=== PATIENT | male | born 1965 | race Caucasian/White ===

== ENCOUNTER 2017-04-11 15:45 | Emergency (ER) | payer OTHER ==
[~2017-04-11] VITALS: Ht 185.4 cm; Wt 81.8 kg
[~2017-04-11 15:45] MED LIST: ACETAMINOP160 MG/51 GT; BACTRIM,SEPT1 TABLET GT; BACTRIM,SEPT1 TABLET PO; BIOTENE ORALBAL42 GM MM; BISACODYL SUPP10 MG RC; CALCIUM CA1250 MG/5 GT; CALCIUM CARB 51 EACH GT; CENTAMIN240 ML GT; CENTAMIN240 ML PO; CEROVITE237 ML GT; CIPRO500 MG PO; CLOTRIMAZOLE-BE15 GM TP; DEBROX15 ML BOTH EARS; DEPAKENE250 MG PO; DIASTAT ACUDIA1 EACH RC; DIASTAT ACUDIAL10 MG PR; DOXYCYCLINE HY100 MG GT; DULCOLAX10 MG PR; DUODERM CGF1 EACH TP; DUONEB3 ML IH; ESCITALOPRA5 MG/5 ML PO; FLEET ENEMA-AD118 ML PR; FORTICAL,200 INTUNI NS; FORTICAL3.7 ML ALT NARES; HIBICLENS118 ML TP; IMODIUM A-1 MG/7.5 M GT; LAMISIL15 GM TP; LAXATIVE SUPPOS10 MG PR; LEXAPRO5 MG/5 ML GT; LEXAPRO5 MG/5 ML PO; LISINOPRIL5 MG GT; LISINOPRIL5 MG PO; LOPERAMIDE1 MG/5 ML GT; LOPERAMIDE1 MG/5 ML PO; METHENAMINE HIPP1 G1 GT; METHENAMINE1 GM; MULTI-VITAMIN1 EAC1 PO; MUPIROCIN1 GM TP; Mycostatin,Nystop Po TP; NAPROSYN125 MG/5 M G-TUBE; NAPROXEN375 M1 GT; NAPROXEN375 M2 GT; NYAMYC60 GM TP; PEDIATRIC ELEC237 ML PO; PHENADOZ25 MG PR; PHENADOZ25 MG RC; PRINIVIL5 MG PO; PROMETHEGAN25 MG PR; Q-TUSSIN DM SY240 ML GT; Q-TUSSIN100 MG/5 M GT; SENNA PLUS TAB1 EACH GT; SILACE50 MG/5 ML GT; SILVER NITRATE1 EACH TP; SODIUM CHLORIDE1 G1 GT; SODIUM CHLORIDE1 G1 PO; TEGRETOL PO; TEGRETOL-XR,CA400 MG GT; TEGRETOL100 MG/5 M GT; TEGRETOL100 MG/5 M PO; TRIPLE ANTIB28.35 GM TP; TYLENOL EX167 MG/5 M GT; TYLENOL650 MG/20. PO; VALPROIC A250 MG/5 M G-TUBE; VALPROIC A250 MG/5 M GT; [UNRECOGNIZED DRUG - OTHER] TP
[2017-04-11 17:48] LABS: HEMATOCRIT 39.4 % (38.0-50.0); MCH 32.3 PG (29.0-34.0); MCHC 35.5 G/DL (30.0-36.0); MCV 90.8 FL (86-99); PLATELET COUNT 130 K/uL (156-360); RBC DIS.WIDTH-CV 12.5 % (11.8-14.6); RBC DIS.WIDTH-SD 41.6 % (39-53); RED BLOOD COUNT 4.34 M/uL (4.00-5.50); WHITE BLOOD COUNT 3.3 K/uL (4.1-10.2)
[2017-04-11 17:56] LABS: ALBUMIN 3.8 g/dL (3.2-4.8)
[2017-04-11 17:57] LABS: CHLORIDE 92 mEq/L (99-109); POTASSIUM 4.6 mEq/L (3.7-5.4); SODIUM 131 mEq/L (136-147)
[2017-04-11 17:59] LABS: GLUCOSE 83 mg/dL (70-99); TOTAL PROTEIN 7.9 g/dL (6.4-8.3)
[2017-04-11 18:01] LABS: TOTAL BILIRUBIN 0.2 mg/dL (0.0-1.0)
[2017-04-11 18:02] LABS: ALKALINE PHOSPHATASE 96 IU/L (3-129)
[2017-04-11 18:03] LABS: CREATININE 0.5 mg/dL (0.6-1.3); GFR ESTIMATE (CALCULATED) > 59 mL/min/ (58.99-99999)
[2017-04-11 18:04] LABS: AST (GOT) 12 IU/L (2-34); UREA NITROGEN (BUN) 11 mg/dL (9-23)
[2017-04-11 18:05] LABS: ALT (GPT) 10 IU/L (3-49)
[2017-04-11] MEDS ORDERED: FLEET ENEMA EX230 ML PR (18:20)
[2017-04-11] MEDS ORDERED: CENTRUM LIQUID GT (18:28)
[2017-04-11] MEDS ORDERED: DOCUSATE GT (18:35)
[2017-04-11] MEDS ORDERED: TEGRETOL100 MG/5 M GT (18:38)
[2017-04-11] MEDS ORDERED: TOBRAMYCIN-DEXAM5 ML RIGHT EYE (18:44)
[2017-04-11] MEDS ORDERED: CLEOCIN300 MG GT (18:46)
[2017-04-12 01:27] LABS: CREATINE KINASE 33 IU/L (1-294); LIPASE 27 U/L (1.0-51.0)
[2017-04-12 01:52] LABS: VALPROIC ACID (DEPAKOTE) 64.9 MCG/ML (50-100)
[2017-04-12 03:33] VITALS: BP 114/78
== END 2017-04-12 03:46 | disposition short-term general hospital (02) ==
LOC: EME 15:45 → EDOF 19:40 → EME 19:40 → ENRESERV 19:41 → CANRESERV 20:01 → ENRESERV 20:01
PROVIDERS: Hospitalist; Nurse Practitioner Family
DX: H05.20 Unspecified exophthalmos (principal); H05.011 Cellulitis of right orbit; G40.909 Epilepsy, unspecified, not intractable, without status epilepticus; J32.9 Chronic sinusitis, unspecified; Z87.820 Personal history of traumatic brain injury; F79 Unspecified intellectual disabilities; I10 Essential (primary) hypertension; R47.01 Aphasia; Z99.3 Dependence on wheelchair; Z93.1 Gastrostomy status; Z88.1 Allergy status to other antibiotic agents
CPT/HCPCS: 70487; 80053; 80156; 80164; 82550; 82948; 83690; 85027; 87040; 99281; 99285; J1956; J2060; J3370

== ENCOUNTER 2017-07-23 13:35 | Inpatient (IN) | payer OTHER ==
[~2017-07-23] VITALS: Ht 172.7 cm; Wt 86.1 kg
[~2017-07-23 13:35] MED LIST changes: +CENTRUM LIQUID GT; +CLEOCIN300 MG GT; +FLEET ENEMA EX230 ML PR; +TOBRAMYCIN-DEXAM5 ML RIGHT EYE
[2017-07-23 15:25] LABS: HEMATOCRIT 39.7 % (38.0-50.0); HEMOGLOBIN 14.2 G/DL (12.5-16.6); MCHC 35.8 G/DL (30.0-36.0); MCV 89.4 FL (86-99); RBC DIS.WIDTH-CV 12.6 % (11.8-14.6); RBC DIS.WIDTH-SD 40.9 % (39-53); RED BLOOD COUNT 4.44 M/uL (4.00-5.50); WHITE BLOOD COUNT 8.2 K/uL (4.1-10.2)
[2017-07-23 15:26] LABS: PLATELET COUNT 102 K/uL (156-360)
[2017-07-23 15:34] LABS: CHLORIDE 87 mEq/L (99-109); POTASSIUM 4.4 mEq/L (3.7-5.4); SODIUM 125 mEq/L (136-147)
[2017-07-23 15:36] LABS: GLUCOSE 178 mg/dL (70-99)
[2017-07-23 15:40] LABS: CREATININE 0.6 mg/dL (0.6-1.3); GFR ESTIMATE (CALCULATED) > 59 mL/min/ (58.99-99999); UREA NITROGEN (BUN) 12 mg/dL (9-23)
[2017-07-23 16:57] LABS: APPEARANCE CLOUDY ((CLEAR)); BILIRUBIN NEGATIVE; BLOOD NEGATIVE; COLOR AMBER ((YELLOW)); GLUCOSE (STRIP) NEGATIVE; KETONES NEGATIVE; LEUKOCYTES NEGATIVE; NITRITE NEGATIVE; PROTEIN (STRIP) 30; SPECIFIC GRAVITY 1.019 (1.000-1.030); UROBILINOGEN 0.2 MG/DL (0.2-1.0)
[2017-07-23 17:19] LABS: EPITHELIAL CELLS RARE /HPF; MUCUS NONE SEEN /LPF; RED BLOOD CELLS NONE SEEN /HPF (0-5); UCUL ADDED? NO; WHITE BLOOD CELLS NONE SEEN /HPF (0-5)
[2017-07-23 17:21] LABS: BACTERIA 1+ /HPF; CALCIUM OXALATE CRYSTALS FEW /HPF; TRIPLE PHOSPHATE CRYSTALS 2+ /HPF
[2017-07-23] MEDS ORDERED: DESITIN57 GM TP (18:10)
[2017-07-23] MEDS ORDERED: DEBROX15 ML BOTH EARS (18:12)
[2017-07-23] MEDS ORDERED: PROSHIELD PLUS113 GM TP ×2 (18:13→18:14)
[2017-07-23] MEDS ORDERED: SILTUSSIN100 MG/51 GT (18:19)
[2017-07-23 22:01] VITALS: BP 102/59
[2017-07-24 00:01] VITALS: BP 142/68
[2017-07-24 06:52] LABS: BASOPHIL (%) 0.2 % (0-1); EOSINOPHIL (%) 0 % (0-5); HEMOGLOBIN 12.4 G/DL (12.5-16.6); IMMATURE GRANULOCYTE (%) 0.2 % (0.0-0.7); LYMPHOCYTE (%) 14.8 % (15-42); LYMPHOCYTE COUNT 0.7 K/uL (1.0-2.8); MCH 31.4 PG (29.0-34.0); MCHC 34.4 G/DL (30.0-36.0); MCV 91.1 FL (86-99); MONOCYTE (%) 9.9 % (3-12); MONOCYTE COUNT 0.5 K/uL (0-0.8); NEUTROPHIL (%) 74.9 % (45-76); NEUTROPHIL COUNT 3.6 K/uL (1.8-6.4); PLATELET COUNT 102 K/uL (156-360); RBC DIS.WIDTH-CV 12.6 % (11.8-14.6); RBC DIS.WIDTH-SD 41.9 % (39-53); RED BLOOD COUNT 3.95 M/uL (4.00-5.50); WHITE BLOOD COUNT 4.9 K/uL (4.1-10.2)
[2017-07-24 07:00] LABS: CHLORIDE 95 MEQ/L (99-109); CREATININE 0.3 MG/DL (0.6-1.3); GFR ESTIMATE (CALCULATED) > 59 mL/min/ (58.99-99999); GLUCOSE 146 mg/dL (70-99); POTASSIUM 3.8 MEQ/L (3.7-5.4); SODIUM 130 MEQ/L (136-147); UREA NITROGEN (BUN) 7 mg/dL (9-23)
[2017-07-24 07:54] VITALS: BP 96/55
[2017-07-24 11:49] VITALS: BP 114/70
[2017-07-24 15:00] VITALS: BP 125/65
[2017-07-25] VITALS (10 sets, daily range): BP systolic 117–156; BP diastolic 60–91
[2017-07-25 08:13] LABS: BASOPHIL (%) 0.4 % (0-1); EOSINOPHIL (%) 1.2 % (0-5); HEMATOCRIT 37.1 % (38.0-50.0); HEMOGLOBIN 12.9 G/DL (12.5-16.6); IMMATURE GRANULOCYTE (%) 0.4 % (0.0-0.7); LYMPHOCYTE (%) 22.9 % (15-42); LYMPHOCYTE COUNT 0.6 K/uL (1.0-2.8); MCH 32.1 PG (29.0-34.0); MCHC 34.8 G/DL (30.0-36.0); MCV 92.3 FL (86-99); MONOCYTE (%) 10.4 % (3-12); MONOCYTE COUNT 0.3 K/uL (0-0.8); NEUTROPHIL (%) 64.7 % (45-76); NEUTROPHIL COUNT 1.6 K/uL (1.8-6.4); PLATELET COUNT 81 K/uL (156-360); RBC DIS.WIDTH-CV 12.8 % (11.8-14.6); RBC DIS.WIDTH-SD 43.6 % (39-53); RED BLOOD COUNT 4.02 M/uL (4.00-5.50); WHITE BLOOD COUNT 2.5 K/uL (4.1-10.2)
[2017-07-25 08:51] LABS: THYROTROPIN (TSH) 3.9 MIU/L (0.4-5.5)
[2017-07-25 10:48] LABS: CHLORIDE 99 MEQ/L (99-109); CREATININE 0.2 MG/DL (0.6-1.3); GFR ESTIMATE (CALCULATED) > 59 mL/min/ (58.99-99999); POTASSIUM 3.9 MEQ/L (3.7-5.4); SODIUM 135 MEQ/L (136-147); UREA NITROGEN (BUN) 12 mg/dL (9-23)
[2017-07-25 10:50] LABS: GLUCOSE 97 mg/dL (70-99)
[2017-07-25 14:39] LABS: CREATINE KINASE 113 IU/L (1-294)
[2017-07-26 06:12] LABS: BASOPHIL (%) 0.4 % (0-1); EOSINOPHIL (%) 1.2 % (0-5); HEMATOCRIT 36.9 % (38.0-50.0); HEMOGLOBIN 12.6 G/DL (12.5-16.6); LYMPHOCYTE (%) 34.4 % (15-42); LYMPHOCYTE COUNT 0.9 K/uL (1.0-2.8); MCH 31.4 PG (29.0-34.0); MCHC 34.1 G/DL (30.0-36.0); MONOCYTE COUNT 0.2 K/uL (0-0.8); NEUTROPHIL COUNT 1.4 K/uL (1.8-6.4); PLATELET COUNT 95 K/uL (156-360); RBC DIS.WIDTH-CV 12.6 % (11.8-14.6); RBC DIS.WIDTH-SD 42.3 % (39-53); RED BLOOD COUNT 4.01 M/uL (4.00-5.50); WHITE BLOOD COUNT 2.5 K/uL (4.1-10.2)
[2017-07-26 06:39] LABS: CHLORIDE 99 MEQ/L (99-109); CREATININE 0.2 MG/DL (0.6-1.3); GFR ESTIMATE (CALCULATED) > 59 mL/min/ (58.99-99999); GLUCOSE 104 mg/dL (70-99); POTASSIUM 3.9 MEQ/L (3.7-5.4); SODIUM 136 MEQ/L (136-147); UREA NITROGEN (BUN) 6 mg/dL (9-23)
[2017-07-26 07:27] VITALS: BP 129/66
[2017-07-26 15:38] VITALS: BP 141/65
[2017-07-27 00:41] VITALS: BP 138/83
[2017-07-27 08:35] VITALS: BP 138/78
[2017-07-27 15:30] VITALS: BP 172/79
[2017-07-27 23:40] VITALS: BP 135/81
[2017-07-28 07:14] LABS: BASOPHIL (%) 0.3 % (0-1); EOSINOPHIL (%) 2.4 % (0-5); EOSINOPHIL COUNT 0.1 K/uL (0-0.3); HEMATOCRIT 39.2 % (38.0-50.0); HEMOGLOBIN 13.3 G/DL (12.5-16.6); IMMATURE GRANULOCYTE (%) 0.7 % (0.0-0.7); LYMPHOCYTE (%) 26.1 % (15-42); LYMPHOCYTE COUNT 0.8 K/uL (1.0-2.8); MCH 31.1 PG (29.0-34.0); MCHC 33.9 G/DL (30.0-36.0); MCV 91.6 FL (86-99); MONOCYTE (%) 9.5 % (3-12); MONOCYTE COUNT 0.3 K/uL (0-0.8); NEUTROPHIL COUNT 1.8 K/uL (1.8-6.4); PLATELET COUNT 106 K/uL (156-360); RBC DIS.WIDTH-CV 12.5 % (11.8-14.6); RBC DIS.WIDTH-SD 41.6 % (39-53); RED BLOOD COUNT 4.28 M/uL (4.00-5.50)
[2017-07-28 07:24] VITALS: BP 163/87
[2017-07-28 07:39] LABS: CHLORIDE 104 MEQ/L (99-109); CREATININE 0.2 MG/DL (0.6-1.3); GFR ESTIMATE (CALCULATED) > 59 mL/min/ (58.99-99999); GLUCOSE 88 mg/dL (70-99); MAGNESIUM 1.9 mg/dl (1.3-2.7); POTASSIUM 3.5 MEQ/L (3.7-5.4); SODIUM 140 MEQ/L (136-147); UREA NITROGEN (BUN) 13 mg/dL (9-23)
[2017-07-28 15:13] VITALS: BP 122/84
== END 2017-07-28 16:02 | disposition home or self-care (01) | DRG 641 ==
LOC: EME 13:35 → EDOF 20:03 → 5EAST 20:03 → ENRESERV 20:06 → 5EAST 21:13 → ENPENDDIS 07-28 → 5EAST 07-28 16:02
PROVIDERS: Emergency Medicine; Internal Medicine; Physician Assistant
DX: E87.1 Hypo-osmolality and hyponatremia (principal); R78.81 Bacteremia; E86.0 Dehydration; N39.0 Urinary tract infection, site not specified; I10 Essential (primary) hypertension; J00 Acute nasopharyngitis [common cold]; G40.909 Epilepsy, unspecified, not intractable, without status epilepticus; Z68.28 Body mass index [BMI] 28.0-28.9, adult; F79 Unspecified intellectual disabilities; B95.7 Other staphylococcus as the cause of diseases classified elsewhere; Z82.0 Family history of epilepsy and other diseases of the nervous system; Z66 Do not resuscitate; Z93.1 Gastrostomy status; Z87.820 Personal history of traumatic brain injury; Z87.440 Personal history of urinary (tract) infections; Z79.899 Other long term (current) drug therapy; Z82.49 Family history of ischemic heart disease and other diseases of the circulatory system; R47.01 Aphasia
CPT/HCPCS: 70450; 71045; 74018; 80048; 80202; 81003; 82550; 82565; 82948; 83605; 83735; 83930; 83935; 84443; 85025; 85027; 85610; 87040; 87077; 87086; 87186; 87801; 93005; 93926; 99281; 99285; C1753; J1650; J1956; J3370; J7030; J7042; J7050

== ENCOUNTER 2017-12-02 08:57 | Inpatient (IN) | payer OTHER ==
[~2017-12-02] VITALS: Ht 180.3 cm; Wt 87.3 kg
[~2017-12-02 08:57] MED LIST changes: +CACARB500L GT; +DESITIN57 GM TP; +PROSHIELD PLUS113 GM TP; +SILTUSSIN100 MG/51 GT; -SODIUM CHLORIDE1 G1 PO
[2017-12-02 10:05] LABS: BASOPHIL (%) 0.2 % (0-1); EOSINOPHIL (%) 3.5 % (0-5); EOSINOPHIL COUNT 0.2 K/uL (0-0.3); HEMATOCRIT 40.3 % (38.0-50.0); HEMOGLOBIN 14.3 G/DL (12.5-16.6); IMMATURE GRANULOCYTE (%) 0.5 % (0.0-0.7); LYMPHOCYTE COUNT 1.2 K/uL (1.0-2.8); MCH 32.1 PG (29.0-34.0); MCHC 35.5 G/DL (30.0-36.0); MCV 90.6 FL (86-99); MONOCYTE (%) 8.3 % (3-12); MONOCYTE COUNT 0.4 K/uL (0-0.8); NEUTROPHIL (%) 60.5 % (45-76); NEUTROPHIL COUNT 2.6 K/uL (1.8-6.4); PLATELET COUNT 105 K/uL (156-360); RBC DIS.WIDTH-CV 13.2 % (11.8-14.6); RBC DIS.WIDTH-SD 43.6 % (39-53); RED BLOOD COUNT 4.45 M/uL (4.00-5.50); WHITE BLOOD COUNT 4.3 K/uL (4.1-10.2)
[2017-12-02 10:16] LABS: ALBUMIN 3.7 g/dL (3.2-4.8); CHLORIDE 95 mEq/L (99-109); POTASSIUM 4.3 mEq/L (3.7-5.4); SODIUM 132 mEq/L (136-147)
[2017-12-02 10:18] LABS: GLUCOSE 114 mg/dL (70-99); TOTAL PROTEIN 7.3 g/dL (6.4-8.3)
[2017-12-02 10:20] LABS: TOTAL BILIRUBIN 0.3 mg/dL (0.0-1.0)
[2017-12-02 10:22] LABS: ALKALINE PHOSPHATASE 95 IU/L (3-129); CREATININE 0.5 mg/dL (0.6-1.3); GFR ESTIMATE (CALCULATED) > 59 mL/min/ (58.99-99999)
[2017-12-02 10:23] LABS: AST (GOT) 22 IU/L (2-34); UREA NITROGEN (BUN) 8 mg/dL (9-23)
[2017-12-02 10:25] LABS: ALT (GPT) 16 IU/L (3-49)
[2017-12-02 10:27] LABS: TROP-I INTERPRETATION NEGATIVE; TROPONIN-I < 0.01 ng/mL (0.0-0.30)
[2017-12-02 11:22] LABS: APPEARANCE TURBID ((CLEAR)); BILIRUBIN NEGATIVE; BLOOD NEGATIVE; COLOR YELLOW ((YELLOW)); GLUCOSE (STRIP) NEGATIVE; KETONES NEGATIVE; LEUKOCYTES SMALL; NITRITE POSITIVE; PROTEIN (STRIP) NEGATIVE; SPECIFIC GRAVITY 1.014 (1.000-1.030); UROBILINOGEN 0.2 MG/DL (0.2-1.0)
[2017-12-02 11:37] LABS: EPITHELIAL CELLS NONE SEEN /HPF; MUCUS NONE SEEN /LPF; RED BLOOD CELLS NONE SEEN /HPF (0-5); UCUL ADDED? NO; WHITE BLOOD CELLS RARE /HPF (0-5)
[2017-12-02 11:38] LABS: AMORPHOUS PHOSPHATE CRYSTALS 2+; BACTERIA 1+ /HPF
[2017-12-02] MEDS ORDERED: BIOTENE ORALBAL42 G1 MM (13:40)
[2017-12-02] MEDS ORDERED: SSD25GM TP (13:53)
[2017-12-02 14:06] VITALS: BP 135/76
[2017-12-02 19:51] VITALS: BP 147/85
[2017-12-03 00:18] VITALS: BP 103/57
[2017-12-03 04:54] VITALS: BP 126/69
[2017-12-03 05:39] LABS: BASOPHIL (%) 0.6 % (0-1); EOSINOPHIL (%) 5.2 % (0-5); EOSINOPHIL COUNT 0.2 K/uL (0-0.3); HEMATOCRIT 40.3 % (38.0-50.0); HEMOGLOBIN 13.6 G/DL (12.5-16.6); IMMATURE GRANULOCYTE (%) 0.3 % (0.0-0.7); LYMPHOCYTE (%) 26.6 % (15-42); LYMPHOCYTE COUNT 0.8 K/uL (1.0-2.8); MCHC 33.7 G/DL (30.0-36.0); MCV 91.8 FL (86-99); MONOCYTE (%) 10.4 % (3-12); MONOCYTE COUNT 0.3 K/uL (0-0.8); NEUTROPHIL (%) 56.9 % (45-76); NEUTROPHIL COUNT 1.8 K/uL (1.8-6.4); PLATELET COUNT 102 K/uL (156-360); RBC DIS.WIDTH-CV 13.2 % (11.8-14.6); RBC DIS.WIDTH-SD 45.1 % (39-53); RED BLOOD COUNT 4.39 M/uL (4.00-5.50); WHITE BLOOD COUNT 3.1 K/uL (4.1-10.2)
[2017-12-03 06:02] LABS: CHLORIDE 94 MEQ/L (99-109); CREATININE 0.4 MG/DL (0.6-1.3); GFR ESTIMATE (CALCULATED) > 59 mL/min/ (58.99-99999); GLUCOSE 112 mg/dL (70-99); POTASSIUM 4.5 MEQ/L (3.7-5.4); SODIUM 132 MEQ/L (136-147); UREA NITROGEN (BUN) 8 mg/dL (9-23)
[2017-12-03 07:30] VITALS: BP 137/77
[2017-12-03 11:11] VITALS: BP 125/73
[2017-12-03 15:26] VITALS: BP 116/67
[2017-12-03 20:07] VITALS: BP 132/69
[2017-12-04 00:01] VITALS: BP 109/57
[2017-12-04 03:58] VITALS: BP 111/52
[2017-12-04 05:30] LABS: HEMATOCRIT 34.6 % (38.0-50.0); HEMOGLOBIN 11.8 G/DL (12.5-16.6); MCH 31.3 PG (29.0-34.0); MCHC 34.1 G/DL (30.0-36.0); MCV 91.8 FL (86-99); PLATELET COUNT 83 K/uL (156-360); RBC DIS.WIDTH-CV 13.3 % (11.8-14.6); RBC DIS.WIDTH-SD 44.5 % (39-53); RED BLOOD COUNT 3.77 M/uL (4.00-5.50); WHITE BLOOD COUNT 3.9 K/uL (4.1-10.2)
[2017-12-04 06:05] LABS: CHLORIDE 95 MEQ/L (99-109); CREATININE 0.4 MG/DL (0.6-1.3); GFR ESTIMATE (CALCULATED) > 59 mL/min/ (58.99-99999); GLUCOSE 104 mg/dL (70-99); POTASSIUM 3.9 MEQ/L (3.7-5.4); SODIUM 130 MEQ/L (136-147); UREA NITROGEN (BUN) 8 mg/dL (9-23)
[2017-12-04 07:25] VITALS: BP 106/64
[2017-12-04 11:39] VITALS: BP 110/64
[2017-12-04 15:47] VITALS: BP 107/68
[2017-12-04 19:48] VITALS: BP 104/67
[2017-12-05 00:07] VITALS: BP 130/74
[2017-12-05 03:52] VITALS: BP 117/67
[2017-12-05 07:50] VITALS: BP 110/66
[2017-12-05 08:18] LABS: HEMATOCRIT 37.8 % (38.0-50.0); HEMOGLOBIN 12.7 G/DL (12.5-16.6); MCHC 33.6 G/DL (30.0-36.0); MCV 92.2 FL (86-99); PLATELET COUNT 90 K/uL (156-360); RBC DIS.WIDTH-CV 13.3 % (11.8-14.6); RBC DIS.WIDTH-SD 45.3 % (39-53); WHITE BLOOD COUNT 3.1 K/uL (4.1-10.2)
[2017-12-05 08:44] LABS: CHLORIDE 97 MEQ/L (99-109); CREATININE 0.3 MG/DL (0.6-1.3); GFR ESTIMATE (CALCULATED) > 59 mL/min/ (58.99-99999); GLUCOSE 113 mg/dL (70-99); POTASSIUM 4.5 MEQ/L (3.7-5.4); SODIUM 134 MEQ/L (136-147); UREA NITROGEN (BUN) 8 mg/dL (9-23)
[2017-12-05] MEDS ORDERED: AZITHROMYCIN500 M1 PO (11:18)
[2017-12-05 11:46] VITALS: BP 114/68
== END 2017-12-05 17:08 | disposition home or self-care (01) | DRG 202 ==
LOC: EME 08:57 → ENRESERV 11:56 → EDOF 11:56 → 4SOUTH 11:56 → EDOF 11:56 → ENRESERV 12:00 → 4SOUTH 13:47
PROVIDERS: Emergency Medicine; Hospitalist; Physician Assistant
DX: J20.9 Acute bronchitis, unspecified (principal); J98.11 Atelectasis; D69.6 Thrombocytopenia, unspecified; E87.1 Hypo-osmolality and hyponatremia; I10 Essential (primary) hypertension; R13.10 Dysphagia, unspecified; T14.8XXS Other injury of unspecified body region, sequela; G82.20 Paraplegia, unspecified; V89.2XXS Person injured in unspecified motor-vehicle accident, traffic, sequela; S09.90XS Unspecified injury of head, sequela; R47.01 Aphasia; L89.309 Pressure ulcer of unspecified buttock, unspecified stage; Z66 Do not resuscitate; Z93.1 Gastrostomy status
CPT/HCPCS: 71045; 71250; 80048; 80053; 81003; 83605; 84484; 85025; 85027; 87040; 87070; 87205; 87641; 87801; 93005; 94640; 94760; 94799; 99281; 99285; G0378; J0295; J0456; J1650; J7050